=== PATIENT | female | born 1960 | race Caucasian/White ===

== ENCOUNTER → 2018-01-15 | Outpatient (CLI) | payer OTHER ==
[~2018-01-15] MED LIST: ASPI-715 PO; ASPI81TA94 PO; CALC-797 PO; FEX60 PO; IBU200 PO; LISI-347 PO
--- NOTE | 2018-01-16 09:05 | RADIOLOGY IMAGING REPORT ---
FACILITY: [facility] - [place] PATIENT NAME: SANGITA ALVAREZ : [id number] MR: [id number] V: [id number] EXAM DATE: ORDERING PHYSICIAN: NICK HOANG TECHNOLOGIST: Jennifer Phoenix PROCEDURE:BILATERAL DIGITAL SCREENING MAMMOGRAM WITH CAD ASSISTED INTERPRETATION & 3D TOMOSYNTHESIS COMPARISON:Prior mammograms 01/02/17, 09/12/15, 08/25/14, 08/20/13, 08/12/13, 02/21/11 INDICATIONS:SCREENING FINDINGS: Moderately heterogeneous fibroglandular tissue is seen throughout the breasts. In the approximate 12 o'clock position of the right breast in Zone 2 there is a vague area of architectural distortion not definitively appreciated on the prior study. Spot compression view is recommended for further evaluation in addition to a mediolateral review of the right breast. There is a small grouping of round calcifications also in this location although these have remained stable dating back to 2010. DIAGNOSTIC CATEGORY 0--INCOMPLETE: NEED ADDITIONAL IMAGING EVALUATION. RECOMMENDATIONS: ADDITIONAL MAMMOGRAPHIC VIEWS REQUIRED: RIGHT BREAST. IMPRESSION: BIRADS 0: Incomplete Additional views of the right breast recommended as described. Dictated by: Juliana Smith M.D. on 01/15/2018 at 10:38 Transcribed by: SALIMA on 01/15/2018 at 13:48 Approved by: Juliana Smith M.D. on 01/16/2018 at 9:04 [facility]
== END ==
LOC: MAMO 00:14
PROVIDERS: ATTEND Physician Assistant
DX: Z12.31 Encounter for screening mammogram for malignant neoplasm of breast (principal); R92.8 Other abnormal and inconclusive findings on diagnostic imaging of breast
CPT/HCPCS: 77063; 77067

== ENCOUNTER → 2018-01-20 | Outpatient (CLI) | payer OTHER ==
--- NOTE | 2018-01-22 09:12 | RADIOLOGY IMAGING REPORT ---
[place] [facility] [place] NAME: SANGITA ALVAREZ : [id number] MR: [id number] V: [id number] EXAM DATE: [id number] ORDERING PHYSICIAN: NICK HOANG TECHNOLOGIST: Jeanne Garcia PROCEDURE:RIGHT DIGITAL DIAGNOSTIC MAMMOGRAM WITH 3D BREAST TOMOSYNTHESIS. COMPARISON:None. INDICATIONS:FURTHER EVAL FINDINGS: Patient returns for a mediolateral view of the right breast and spot compression views in the right CC and MLO projections. The focal area of architectural distortion in the approximate 12 o'clock position of the right breast appears compressible and apparently represents summation shadow. There is no demonstration of malignant appearing mass, malignant appearing calcifications or other secondary sign of malignancy in the right breast. DIAGNOSTIC CATEGORY 2--BENIGN FINDING. RECOMMENDATIONS: ROUTINE MAMMOGRAM AND CLINICAL EVALUATION. IMPRESSION: BIRADS 2: Benign finding No significant abnormality is seen Dictated by: Juliana Smith M.D. on 01/20/2018 at 15:38 Transcribed by: SALIMA on 01/21/2018 at 8:24 Approved by: Juliana Smith M.D. on 01/22/2018 at 9:11 [facility]
== END ==
LOC: MAMO 07:22
PROVIDERS: ATTEND Physician Assistant
DX: R92.8 Other abnormal and inconclusive findings on diagnostic imaging of breast (principal)
CPT/HCPCS: 77065

== ENCOUNTER → 2019-02-03 | Outpatient (CLI) | payer OTHER ==
--- NOTE | 2019-02-04 08:49 | RADIOLOGY IMAGING REPORT ---
FAC[place] [facility] [place]IENT NAME: SANGITA ALVAREZ : [id number] MR: [id number] V: [id number] EXAM DATE: [id number] ORDERING PHYSICIAN: NICK HOANG TECHNOLOGIST: Jeanne Gacria PROCEDURE:BILATERAL DIGITAL SCREENING MAMMOGRAM WITH CAD ASSISTED INTERPRETATION & 3D TOMOSYNTHESIS COMPARISON:Prior mammograms 01/20/18, 01/15/18, 01/02/17, 09/12/15, 08/25/14, 08/20/13. INDICATIONS:SCREENING FINDINGS: There are scattered areas of fibroglandular density throughout the breasts. The parenchymal pattern has remained stable allowing for difference in mammographic technique & patient positioning. DIAGNOSTIC CATEGORY 1--NEGATIVE. RECOMMENDATIONS: ROUTINE MAMMOGRAM AND CLINICAL EVALUATION. IMPRESSION: BIRADS 1: Negative. No significant abnormality is seen. Dictated by: Juliana Smith M.D. on 02/03/2019 at 16:17 Transcribed by: SALIMA on 02/04/2019 at 8:46 Approved by: Juliana Smith M.D. on 02/04/2019 at 8:48 [facility]
== END ==
LOC: MAMO 01:13
PROVIDERS: ATTEND Physician Assistant
DX: Z12.31 Encounter for screening mammogram for malignant neoplasm of breast (principal)
CPT/HCPCS: 77063; 77067

== ENCOUNTER 2019-02-07 17:00 | Observation (INO) | payer OTHER ==
[~2019-02-07] VITALS: Ht 160 cm; Wt 75.7 kg
[2019-02-07] VITALS (13 sets, daily range): BP systolic 92–108; BP diastolic 54–68
[~2019-02-07 17:00] MED LIST changes: -AMOX-559 PO; -IOPAMIDOL 76% 100 ML INFUS BTL 100 ML ONE; -TRAM-420 PO
[2019-02-07] MEDS ORDERED: metroNIDAZOLE* 500MG/100ML BAG 100 ML IVPB ONE (18:15)
[2019-02-07] MEDS ORDERED: LEVOFLOXACIN/D5W 750 MG/150 ML 150 ML IVPB ONE (18:15)
[2019-02-07] MEDS ORDERED: FAMOTIDINE(*) 20MG/50ML PREMIX 50 ML IVPB ONE (18:15)
[2019-02-07] MEDS ORDERED: NORMOSOL R SOLN(*) 1000 ML BAG 1,000 ML IV ONE (18:15)
--- NOTE | 2019-02-07 18:25 | Gen Surgery History & Physical ---
History of Present Illness Chief Complaint abd pain History of Present Illness 58 yo with abd pain since yesterday morning. pain is mostly rlq it extends throughout lower abd. pain with urination. feels poorly. pmh/psh: htn, hysterectomy allergies: nkda fam hx: father - brain ca, brother - depression, addiction social hx: no cigs or etoh History Home Meds Reported Medications Aspirin (ASPIRIN) 81 Mg Tab.chew, 81 MG PO QDAY, TAB.CHEW TAKE 1 TABLET BY MOUTH EVERY DAY 11/10/13 Lisinopril/Hydrochlorothiazide (Lisinopril-Hctz 13/11.5 Tab) 1 Each Tablet, 1 EACH PO DAILY 08/14/12 Allergies: Coded Allergies: No Known Drug Allergies (Unverified , 08/14/12) Patient History: FH: brain cancer FATHER FH: depression BROTHER OR SISTER Review of Systems Constitutional: Other (10 pt ros neg except per hpi) Exam General Appearance: Alert, Awake, Other (stable does appears to not feel well) Neuro: No Gross deficits Eyes: Other (per, eomi) ENT: Moist Mucous Membranes Cardiovascular: Other (tachycardic) Respiratory: No Respiratory Distress GI: Other (abd soft, ttp rlq) Extremities: Other (no pitting edema) Integumentary: Skin Intact without Lesion / Mass Psych: Alert & Oriented X3, Appropriate Mood & Affect Assessment and Plan Problems: (1) Acute appendicitis Assessment & Plan: 02/07/19: npo, iv abx, ivf, lap appy Venous Thromboembolism Antithrombotics Is Pt On Any Antithrombotics?: No ZULEYKA NOVAK Feb 07, 2019 18:25
[2019-02-07] MEDS ORDERED: PROPOFOL EMUL(*) 10MG/ML 20 ML 20 ML ONE (18:28)
[2019-02-07] MEDS ORDERED: METOCLOPRAMIDE 10 MG/2 ML SDV ONE (18:28)
[2019-02-07] MEDS ORDERED: ONDANSETRON 4 MG/2 ML VIAL ONE (18:28)
[2019-02-07] MEDS ORDERED: LIDOCAINE MPF 1% 5 ML VIAL ONE (18:28)
[2019-02-07] MEDS ORDERED: DEXAMETHASONE SOD 4 MG/ML VIAL ONE (18:29)
[2019-02-07] MEDS ORDERED: SUGAMMADEX SOD 200 MG/2 ML SDV ONE (18:30)
[2019-02-07] MEDS ORDERED: fentaNYL CITR 100 MCG/2 ML AMP ONE (18:31)
[2019-02-07] MEDS ORDERED: BUPIVACAINE/EPI 0.5% 50ML VIAL INFIL ONE (18:36)
[2019-02-07] MEDS ORDERED: ROCURONIUM BROM 10 MG/ML 5 ML ONE (19:00)
[2019-02-07] MEDS ORDERED: HYDROmorphone HCL 2 MG/ML SDV IVP PRN (20:15)
[2019-02-07] MEDS ORDERED: ONDANSETRON 4 MG/2 ML VIAL IVP PRN (20:15)
--- NOTE | 2019-02-07 20:26 | Post Operative Progress Note ---
Post Operative Progress Note Date: Feb 07, 2019 Time: 20:20 Surgeon: sita rodrigues md #[id number] [facility] Medical Specialist: none Anesthesia: gen, local dr. rhodes Pre-Op Diagnosis: acute appendicitis Post-Op Diagnosis: same Findings: perforated acute appendicitis Procedure(s): lap appy Specimen Removed:(May be N/A): appendix Complications: none Fluids: iv crystalloid Estimated Blood Loss: minimal Date OP Note Dictated: Feb 07, 2019 Time OP Note Dictated: 20:21 ZULEYKA RODRIGUES Feb 07, 2019 20:26
[2019-02-07] MEDS: NS(*) 0.9% 1000 ML BAG 1,000 ML IV SCH (20:44)
--- NOTE | 2019-02-07 22:27 | OPERATIVE REPORT 1 ---
EVENT DATE: February 07, 2019 SURGEON: Jeison Spann MD ANESTHESIOLOGIST: Matheus Doss MD ANESTHESIA: General and local. PREOPERATIVE DIAGNOSIS Acute appendicitis. POSTOPERATIVE DIAGNOSIS Acute appendicitis. PROCEDURE PERFORMED Laparoscopic appendectomy. FLUIDS IV crystalloid. ESTIMATED BLOOD LOSS Minimal. SPECIMENS Appendix. COMPLICATIONS None. INDICATIONS This is a 58-year-old female with lower abdominal pain, especially right lower quadrant pain that began yesterday morning. On physical exam, patient looked like she was not feeling well. She was stable, and she had tenderness to palpation in the right lower quadrant. Imaging revealed findings consistent with acute appendicitis. Risks and benefits of the procedure were explained, and consent was signed. DESCRIPTION OF PROCEDURE Patient was taken to the operating room and placed in the supine position. General anesthesia was administered per anesthesia team. Patient was prepped and draped in normal sterile fashion. Local analgesia was injected in the dermis above the umbilicus, and a 5 mm vertical incision was made. The umbilical stump was grasped and elevated. A Veress needle was inserted. Pneumoperitoneum was achieved. Veress needle was removed. A 5 mm port was advanced. After injecting local analgesia under direct vision, a 5 mm suprapubic port and a 12 mm left lower quadrant port were placed. When I inspected the abdomen, there was no injury upon entry. Fatty adhesions to the abdominal wall were taken down sharply and with some LigaSure. The appendix was quickly identified. There was a lot of inflammation around the appendix and some fluid. The appendix was bluntly freed of surrounding tissue. There was a perforation. A window was created in the mesoappendix at the base of the appendix. LigaSure was used to divide the mesoappendix down to the base of the appendix. A laparoscopic 45 mm blue load stapler was fired across the base of the appendix well below the area of perforation. Final adhesions between the appendix and the pelvis wall were taken down with LigaSure, and the appendix was removed with an Endo Catch bag through the left lower quadrant port site. The area was irrigated and suctioned thoroughly. The surrounding tissue was inspected and was viable. Hemostasis was assured. Staple line was confirmed to be intact. I placed a 15-Samoan drain through the suprapubic port and made it to lay in the pelvis. Fascial closure device with an 0 Vicryl stitch was used to close the fascia at the left lower quadrant port site. Final port was removed after pneumoperitoneum was relieved. Incisions were closed with a 4-0 Monocryl subcuticular stitches. Drain was secured in place with a nylon stitch. More local analgesia was injected. Appropriate dressings were applied. Patient tolerated the procedure well. There were no complications. MTDD
[2019-02-07] MEDS: APAP/HYDROCODONE 325/7.5 TAB PO PRN (23:11)
[2019-02-07] MEDS: PIPERACILLIN/TAZO*3.375GM VIAL 3.375 GM in NS(*) 0.9% 100 ML ADDVANT BAG 100 ML IVPB SCH (23:53)
[2019-02-08] VITALS (31 sets, daily range): BP systolic 76–109; BP diastolic 46–62
[2019-02-08] MEDS: NS(*) 0.9% 1000 ML BAG 1,000 ML IV SCH ×3 (04:43→16:14)
[2019-02-08] MEDS: PIPERACILLIN/TAZO*3.375GM VIAL 3.375 GM in NS(*) 0.9% 100 ML ADDVANT BAG 100 ML IVPB SCH ×4 (05:25→23:31)
[2019-02-08] MEDS ORDERED: NS(*) 0.9% 1000 ML BAG 1,000 ML IV ONE (06:10)
[2019-02-08 06:34] LABS: PLATELET COUNT, AUTOMATED 151 K/uL (150-450)
[2019-02-08] MEDS ORDERED: AMOX-559 PO (06:50)
[2019-02-08] MEDS ORDERED: TRAM-420 PO (06:51)
--- NOTE | 2019-02-08 07:06 | General Surgery Progress Note ---
Subjective Progress Notes Subjective feeling better than prior to surgery Physical Exam Vital Signs Date Time Temp Pulse Resp B/P (MAP) Pulse Ox O2 Delivery O2 Flow Rate FiO2 02/08/19 06:34 74 84/54 (64) 92 Nasal Cannula 1.0 02/08/19 03:00 97.9 02/07/19 22:00 18 Intake and Output 02/08/19 07:00 Intake Total 3100 ml Output Total 320 ml Balance 2780 ml Intake IV Total 3100 ml Output Drainage Total 270 ml Other 50 ml # Voids 3 General Appearance: No Acute Distress Cardiovascular: Other (reg rate) Respiratory: No Respiratory Distress GI: Other (soft, serosang from jessica) Result Diagram: 02/08/1962402/08/19624 Assessment and Plan Problems: (1) Acute appendicitis Assessment & Plan: 02/07/19: npo, iv abx, ivf, lap appy. 02/08/19: improved. bolus ivf for low bp. clears, will adat. cont abx. ambulate. likely 1 more night in hosp. Exam Sepsis Risk: No Definite Risk ZULEYKA NOVAK Feb 08, 2019 07:06
[2019-02-08] MEDS: ENOXAPARIN 40 MG/0.4ML SYR SC SCH (08:24)
[2019-02-08] MEDS: APAP/HYDROCODONE 325/7.5 TAB PO PRN (22:02)
[2019-02-09] MEDS: NS(*) 0.9% 1000 ML BAG 1,000 ML IV SCH (01:10)
[2019-02-09 03:48] VITALS: BP 89/58
[2019-02-09] MEDS: PIPERACILLIN/TAZO*3.375GM VIAL 3.375 GM in NS(*) 0.9% 100 ML ADDVANT BAG 100 ML IVPB SCH (05:51)
[2019-02-09 07:09] VITALS: BP 116/71
[2019-02-09] MEDS: ENOXAPARIN 40 MG/0.4ML SYR SC SCH (07:27)
--- NOTE | 2019-02-09 08:56 | Short(Outpt) Discharge Summary ---
Discharge Summary Reason for Hosp/Final Diag: (1) Acute appendicitis Hospital Course & Plan: 02/07/19: npo, iv abx, ivf, lap appy. 02/08/19: improved. bolus ivf for low bp. clears, will adat. cont abx. ambulate. likely 1 more night in hosp. 02/09/19: Doing well. Tolerating diet. Will d/c to home today. F/U with Dr. Spann later this week to remove the drain. Departure Discharge to: Home, Self Care Discharge Instructions Home Meds Active Scripts Tramadol Hcl (TRAMADOL HCL) 50 Mg Tablet, 50 MG PO Q4H PRN for PAIN, #30 TAB Prov:ZULEYKA SPANN 02/08/19 Amoxicillin/Pot Clav 875-125 Mg Tab (AUGMENTIN 875-125 TABLET) 1 Each Tablet, 1 TAB PO Q12H for 7 Days, #14 TAB Prov:ZULEYKA SPANN 02/08/19 Reported Medications Aspirin (ASPIRIN) 81 Mg Tab.chew, 81 MG PO QDAY, TAB.CHEW TAKE 1 TABLET BY MOUTH EVERY DAY 11/10/13 Lisinopril/Hydrochlorothiazide (Lisinopril-Hctz 13/11.5 Tab) 1 Each Tablet, 1 EACH PO DAILY 08/14/12 Follow up Referrals: General Surgery - 02/13/19 @ Surgery, General with INNA MERCEDES MD You have a follow up appointment scheduled with Dr. Spann on 02/13/19, at 1:30pm. Please arrive at the check in counter 15 minutes before your appointment. Diet: Regular Activity: As Tolerated Special Instructions: You may shower as desired but don't immerse the incisions for 2 weeks. Leave the steristrips on the incisions until they fall off on their own. Remove the drain dressing before showering and place a new drain dressing on the drain after showering. Empty the drain at least once every day but look at the bulb and if it is almost full empty more often if needed. Problem Qualifiers (1) Acute appendicitis: Acute appendicitis type: with localized peritonitis Appendicitis gangrene presence: with gangrene Appendicitis perforation presence: with perforation Appendicitis abscess presence: without abscess Qualified Codes: K35.32 - Acute appendicitis with perforation and localized peritonitis, without abscess INNA MERCEDES MD Feb 09, 2019 08:55
== END 2019-02-09 09:54 | disposition home or self-care (01) ==
LOC: UNDOADMIN 17:00 → MED 17:00 → INTOOBSV 17:12
PROVIDERS: ADMIT Surgery; ATTEND Surgery
DX: K35.32 Acute appendicitis with perforation, localized peritonitis, and gangrene, without abscess (principal); R30.9 Painful micturition, unspecified; R10.31 Right lower quadrant pain; I10 Essential (primary) hypertension
CPT/HCPCS: 36415; 44970; 83735; 85025; 88304; 96372; G0378; G0379; J1100; J1650; J2001; J2405; J2543; J2704; J2765; J3010; J7030; J7050; 82040; 82310; 82374; 82435; 82565; 82947; 84100; 84132; 84295; 84520

== ENCOUNTER → 2019-02-07 | Outpatient (REF) | payer OTHER ==
[~2019-02-07] MED LIST changes: +AMOX-559 PO; +TRAM-420 PO
[2019-02-07 13:50] LABS: PLATELET COUNT, AUTOMATED 196 K/uL (150-450)
== END ==
PROVIDERS: ATTEND Nurse Practitioner Family
DX: R10.9 Unspecified abdominal pain (principal)
CPT/HCPCS: 82040; 82150; 82247; 82310; 82374; 82435; 82565; 82947; 83690; 84075; 84132; 84155; 84295; 84450; 84460; 84520; 85025

== ENCOUNTER → 2019-02-07 | Outpatient (CLI) | payer OTHER ==
[~2019-02-07] MED LIST changes: +IOPAMIDOL 76% 100 ML INFUS BTL 100 ML ONE
--- NOTE | 2019-02-07 16:34 | RADIOLOGY IMAGING REPORT ---
FACILITY: [facility] - [place] PATIENT NAME: Cassidy Tate : 1960 MR: [id number] V: [id number] EXAM DATE: ORDERING PHYSICIAN: INNA DIXON TECHNOLOGIST: Location: [facility] [place] Patient: Cassidy Tate : 1960 Visit/Account:[id number] Date of Sevice: 02/07/2019 CT ABDOMEN PELVIS W/ CON HISTORY: Right lower quadrant pain , TECHNIQUE: CT abdomen and pelvis with intravenous contrast. One of the following dose optimization techniques was utilized in the performance of this exam: autom ated exposure control; adjustment of the mA and/or kV according to patient size; or use of iterative reconstruction technique. Specific details can be referenced in the facility?s radiology CT exam oper ational policy. CONTRAST: 85 mL Isovue-370 COMPARISON: None. FINDINGS: Visualized lung bases: Negative. Hepatobiliary: Negative. Spleen: Negative. Adrenals: Negative. Pancreas: Negative. Kidneys/: Negative. GI: The appendix is thickened and hyperemic measuring 13 mm. There is a large amount of fatty strand ing noted within the right lower quadrant and mid abdomen with small areas of free fluid present. No defined abscess is identified. No pneumoperitoneum is seen. There is no evidence of bowel obstruction . Vessels/spaces/nodes: Negative. Bones/soft tissues: Negative. IMPRESSION: Acute appendicitis with significant inflammation of the surrounding mesentery and small amount of uzma e fluid scattered within the pelvis. No discrete abscess is identified. Results were discussed with INNA DIXON at 02/07/2019 4:30 PM. Report Dictated By: Moose Syed at 02/07/2019 4:17 PM Report E-Signed By: Moose Syed at 02/07/2019 4:30 PM WSN:[id number]
== END ==
LOC: CT 14:36
PROVIDERS: ATTEND Nurse Practitioner Family
DX: K35.80 Unspecified acute appendicitis (principal)
CPT/HCPCS: 74177; Q9967